=== PATIENT | male | born 1975 | race Two or more races ===

== ENCOUNTER 2022-02-16 18:06 | Inpatient (IN) | payer MEDICAID ==
[~2022-02-16] VITALS: Ht 172.7 cm; Wt 93.1 kg
[2022-02-16] MEDS ORDERED: QUET25TA PO ×2 (18:44)
[2022-02-16] MEDS ORDERED: QUET100T PO (18:44)
[2022-02-16 19:26] LABS: GLUCOMETER DEV NAME(LOC) POC.BV
[2022-02-16] MEDS ORDERED: LOPERAMIDE HCL 2 MG CAPSULE PO PRN (20:15)
[2022-02-16] MEDS ORDERED: OLANZapine 5 MG RAPDIS TABLET PO PRN (20:15)
[2022-02-16] MEDS ORDERED: ZOLPIDEM TARTRATE 10 MG TABLET PO PRN (20:15)
[2022-02-16] MEDS ORDERED: HydrOXYzine PAMOATE 50 MG CAPSULE PO PRN (20:15)
[2022-02-16] MEDS ORDERED: TUBERCULIN, PURIFIED PROTEIN DERIVATIVE 5 TU/0.1 ML SYRINGE ID ONE (20:15)
[2022-02-16] MEDS ORDERED: PROMETHAZINE HCL 25 MG TABLET PO PRN (20:15)
[2022-02-16] MEDS ORDERED: ACETAMINOPHEN 325 MG TABLET PO PRN (20:15)
[2022-02-16] MEDS ORDERED: GuaiFENesin/D-METHORPHAN [SUGAR-FREE] 200-20MG/10 ML SYRUP UDCUP PO PRN (20:15)
[2022-02-16] MEDS ORDERED: MAGNESIUM HYDROXIDE SUSPENSION 30 ML UDCUP PO PRN (20:15)
[2022-02-16] MEDS ORDERED: INFLUENZA VIRUS VACCINE QVS 2022-23 (6MO+)/PF 60 MCG/0.5 ML SYRINGE IM. ONE (20:30)
[2022-02-16] MEDS: MELATONIN 5 MG TABLET PO SCH (20:46)
[2022-02-16] MEDS: THIAMINE 100 MG TABLET PO SCH (20:46)
[2022-02-16] MEDS: LORazepam 2 MG TABLET PO PRN (20:47)
[2022-02-16] MEDS ORDERED: OLANZapine 5 MG RAPDIS TABLET PO SCH (21:00)
[2022-02-16 21:42] VITALS: BP 124/87
[2022-02-17 07:05] LABS: BASOPHILS % (AUTO) 1.7 % (0.0-2.0); EOSINOPHILS % (AUTO) 2.6 % (1.0-6.0); HEMATOCRIT 47.5 % (41-53); HEMOGLOBIN 15.9 g/dL (13.5-17.5); LYMPHOCYTES # (AUTO) 1.5 K/uL (1.0-4.8); LYMPHOCYTES % (AUTO) 23.2 % (22.0-44.0); MEAN CORPUSCULAR HEMOGLOBIN 30.8 pg (26.0-34.0); MEAN CORPUSCULAR HGB CONC 33.5 G/dL (31.0-37.0); MEAN CORPUSCULAR VOLUME 92 fL (80-100); MONOCYTES # (AUTO) 0.8 K/uL (0.1-1.0); NEUTROPHILS # (AUTO) 3.9 K/uL (1.8-7.7); NEUTROPHILS % (AUTO) 60.5 % (40.0-70.0); PLATELET COUNT (AUTO) 174 K/uL (150-450); RED BLOOD CELL COUNT(AUTO) 5.17 MIL/uL (4.50-5.90); RED CELL DISTRIBUTION WIDTH 14.1 % (11.5-14.5)
[2022-02-17 07:30] LABS: HEMOGLOBIN A1C 5.6 % (3.8-5.6)
[2022-02-17 07:34] LABS: ALANINE AMINOTRANSFERASE 48 U/L (12-78); ALBUMIN 3.4 g/dL (3.4-5.0); ALKALINE PHOSPHATASE 85 U/L (46-116); ANION GAP 8 mmol/L (8-16); ASPARTATE AMINOTRANSFERASE 26 U/L (15-37); BILIRUBIN,TOTAL 0.4 mg/dL (0.1-1.0); CALCIUM, TOTAL 8.8 mg/dL (8.8-10.5); CARBON DIOXIDE 27 mmol/L (22-29); CHLORIDE 103 mmol/L (98-107); CHOL/HDL RATIO 4.4 (4.2-7.3); CHOLESTEROL 218 mg/dL (131-200); CREATININE 1.02 mg/dL (0.60-1.30); FREE T4 (FREE THYROXINE) 0.96 ng/dL (0.76-1.46); GLUCOSE,RANDOM 98 mg/dL (70-110); HDL CHOLESTEROL 49 mg/dL (40-60); LDL CHOL (CALC.) 121 mg/dL (0-130); SODIUM SERUM 138 mmol/L (136-145); THYROID STIMULATING HORMONE 3.16 uIU/mL (0.36-3.74); TOTAL PROTEIN, SERUM 6.9 g/dL (6.4-8.2); TRIGLYCERIDES 242 mg/dL (15-150); UREA NITROGEN, BLOOD 9 mg/dL (7-18)
[2022-02-17 07:35] LABS: GLOMERULAR FILTR. RATE CALC > 60 mL/min (>60)
[2022-02-17 08:53] VITALS: BP 117/62
[2022-02-17] MEDS: OMEGA-3/DHA/EPA/FISH OIL 1,000 MG CAPSULE PO SCH (09:09)
[2022-02-17] MEDS: NALTREXONE HCL 50 MG TABLET PO SCH (09:09)
[2022-02-17] MEDS: FLUoxetine HCL 20 MG CAPSULE PO SCH (09:10)
[2022-02-17] MEDS: MULTIVITAMINS WITH MINERALS, THERAPEUTIC TABLET PO SCH (09:10)
[2022-02-17] MEDS: FOLIC ACID 1 MG TABLET PO SCH (09:10)
[2022-02-17] MEDS: THIAMINE 100 MG TABLET PO SCH ×2 (09:10→16:21)
[2022-02-17] MEDS: QUEtiapine FUMARATE 25 MG TABLET PO SCH (16:21)
[2022-02-17] MEDS: MELATONIN 5 MG TABLET PO SCH (20:11)
[2022-02-17] MEDS: QUEtiapine FUMARATE 100 MG TABLET PO SCH (20:12)
[2022-02-17 20:51] VITALS: BP 113/71
[2022-02-18 08:14] VITALS: BP 113/70
[2022-02-18] MEDS: MULTIVITAMINS WITH MINERALS, THERAPEUTIC TABLET PO SCH (09:47)
[2022-02-18] MEDS: NALTREXONE HCL 50 MG TABLET PO SCH (09:47)
[2022-02-18] MEDS: OMEGA-3/DHA/EPA/FISH OIL 1,000 MG CAPSULE PO SCH (09:47)
[2022-02-18] MEDS: FLUoxetine HCL 20 MG CAPSULE PO SCH (09:47)
[2022-02-18] MEDS: THIAMINE 100 MG TABLET PO SCH ×2 (09:47→16:43)
[2022-02-18] MEDS: QUEtiapine FUMARATE 25 MG TABLET PO SCH ×2 (09:47→16:43)
[2022-02-18] MEDS: FOLIC ACID 1 MG TABLET PO SCH (09:47)
[2022-02-18] MEDS: MELATONIN 5 MG TABLET PO SCH (20:02)
[2022-02-18] MEDS: QUEtiapine FUMARATE 100 MG TABLET PO SCH (20:02)
[2022-02-18 20:22] VITALS: BP 133/83
[2022-02-19 08:24] VITALS: BP 118/61
[2022-02-19] MEDS: THIAMINE 100 MG TABLET PO SCH ×2 (09:03→16:19)
[2022-02-19] MEDS: NALTREXONE HCL 50 MG TABLET PO SCH (09:03)
[2022-02-19] MEDS: FOLIC ACID 1 MG TABLET PO SCH (09:03)
[2022-02-19] MEDS: FLUoxetine HCL 20 MG CAPSULE PO SCH (09:03)
[2022-02-19] MEDS: OMEGA-3/DHA/EPA/FISH OIL 1,000 MG CAPSULE PO SCH (09:03)
[2022-02-19] MEDS: MULTIVITAMINS WITH MINERALS, THERAPEUTIC TABLET PO SCH (09:03)
[2022-02-19] MEDS: QUEtiapine FUMARATE 25 MG TABLET PO SCH ×2 (09:03→16:20)
[2022-02-19] MEDS: QUEtiapine FUMARATE 100 MG TABLET PO SCH (20:44)
[2022-02-19] MEDS: MELATONIN 5 MG TABLET PO SCH (20:45)
[2022-02-19 21:32] VITALS: BP 118/59
[2022-02-20 08:25] VITALS: BP 118/86
[2022-02-20] MEDS: THIAMINE 100 MG TABLET PO SCH ×2 (08:40→16:29)
[2022-02-20] MEDS: QUEtiapine FUMARATE 25 MG TABLET PO SCH ×2 (08:40→16:29)
[2022-02-20] MEDS: FLUoxetine HCL 20 MG CAPSULE PO SCH (08:40)
[2022-02-20] MEDS: NALTREXONE HCL 50 MG TABLET PO SCH (08:40)
[2022-02-20] MEDS: FOLIC ACID 1 MG TABLET PO SCH (08:40)
[2022-02-20] MEDS: MULTIVITAMINS WITH MINERALS, THERAPEUTIC TABLET PO SCH (08:40)
[2022-02-20] MEDS: OMEGA-3/DHA/EPA/FISH OIL 1,000 MG CAPSULE PO SCH (08:40)
[2022-02-20] MEDS: MELATONIN 5 MG TABLET PO SCH (20:14)
[2022-02-20] MEDS: QUEtiapine FUMARATE 100 MG TABLET PO SCH (20:14)
[2022-02-20 22:00] VITALS: BP 115/61
[2022-02-21 08:20] VITALS: BP 115/63
[2022-02-21] MEDS: OMEGA-3/DHA/EPA/FISH OIL 1,000 MG CAPSULE PO SCH (08:20)
[2022-02-21] MEDS: NALTREXONE HCL 50 MG TABLET PO SCH (08:20)
[2022-02-21] MEDS: MULTIVITAMINS WITH MINERALS, THERAPEUTIC TABLET PO SCH (08:20)
[2022-02-21] MEDS: FOLIC ACID 1 MG TABLET PO SCH (08:20)
[2022-02-21] MEDS: THIAMINE 100 MG TABLET PO SCH ×2 (08:20→16:19)
[2022-02-21] MEDS: QUEtiapine FUMARATE 25 MG TABLET PO SCH ×2 (08:20→16:19)
[2022-02-21] MEDS: FLUoxetine HCL 20 MG CAPSULE PO SCH (08:20)
[2022-02-21] MEDS: QUEtiapine FUMARATE 100 MG TABLET PO SCH (20:14)
[2022-02-21 20:23] VITALS: BP 126/84
[2022-02-21] MEDS: MELATONIN 5 MG TABLET PO SCH (20:23)
[2022-02-22 08:24] VITALS: BP 107/70
[2022-02-22] MEDS: FOLIC ACID 1 MG TABLET PO SCH (08:35)
[2022-02-22] MEDS: QUEtiapine FUMARATE 25 MG TABLET PO SCH ×2 (08:35→16:44)
[2022-02-22] MEDS: OMEGA-3/DHA/EPA/FISH OIL 1,000 MG CAPSULE PO SCH (08:35)
[2022-02-22] MEDS: FLUoxetine HCL 20 MG CAPSULE PO SCH (08:35)
[2022-02-22] MEDS: NALTREXONE HCL 50 MG TABLET PO SCH (08:35)
[2022-02-22] MEDS: THIAMINE 100 MG TABLET PO SCH ×2 (08:35→16:43)
[2022-02-22] MEDS: MULTIVITAMINS WITH MINERALS, THERAPEUTIC TABLET PO SCH (08:36)
[2022-02-22 08:56] LABS: GLUCOMETER DEV NAME(LOC) POC.BV
[2022-02-22] MEDS: QUEtiapine FUMARATE 100 MG TABLET PO SCH (20:10)
[2022-02-22] MEDS: MELATONIN 5 MG TABLET PO SCH (20:11)
[2022-02-22 20:24] VITALS: BP 111/78
[2022-02-23] MEDS: NALTREXONE HCL 50 MG TABLET PO SCH (08:52)
[2022-02-23] MEDS: THIAMINE 100 MG TABLET PO SCH ×2 (08:52→16:10)
[2022-02-23] MEDS: MULTIVITAMINS WITH MINERALS, THERAPEUTIC TABLET PO SCH (08:52)
[2022-02-23] MEDS: FOLIC ACID 1 MG TABLET PO SCH (08:52)
[2022-02-23] MEDS: QUEtiapine FUMARATE 25 MG TABLET PO SCH ×2 (08:52→16:10)
[2022-02-23] MEDS: OMEGA-3/DHA/EPA/FISH OIL 1,000 MG CAPSULE PO SCH (08:52)
[2022-02-23] MEDS: FLUoxetine HCL 20 MG CAPSULE PO SCH (08:52)
[2022-02-23 08:55] VITALS: BP 131/100
[2022-02-23] MEDS: QUEtiapine FUMARATE 200 MG TABLET PO SCH (20:46)
[2022-02-23] MEDS: MELATONIN 5 MG TABLET PO SCH (20:47)
[2022-02-24 08:35] VITALS: BP 127/88
[2022-02-24] MEDS: NALTREXONE HCL 50 MG TABLET PO SCH (08:52)
[2022-02-24] MEDS: QUEtiapine FUMARATE 25 MG TABLET PO SCH ×2 (08:52→16:36)
[2022-02-24] MEDS: FOLIC ACID 1 MG TABLET PO SCH (08:52)
[2022-02-24] MEDS: FLUoxetine HCL 20 MG CAPSULE PO SCH (08:53)
[2022-02-24] MEDS: OMEGA-3/DHA/EPA/FISH OIL 1,000 MG CAPSULE PO SCH (08:53)
[2022-02-24] MEDS: THIAMINE 100 MG TABLET PO SCH ×2 (08:53→16:36)
[2022-02-24] MEDS: MULTIVITAMINS WITH MINERALS, THERAPEUTIC TABLET PO SCH (08:53)
[2022-02-24] MEDS: QUEtiapine FUMARATE 200 MG TABLET PO SCH (20:42)
[2022-02-24] MEDS: MELATONIN 5 MG TABLET PO SCH (20:43)
[2022-02-24 20:46] VITALS: BP 129/75
[2022-02-25 08:41] VITALS: BP 123/76
[2022-02-25] MEDS: FLUoxetine HCL 20 MG CAPSULE PO SCH (08:50)
[2022-02-25] MEDS: QUEtiapine FUMARATE 25 MG TABLET PO SCH ×2 (08:50→16:26)
[2022-02-25] MEDS: FOLIC ACID 1 MG TABLET PO SCH (08:50)
[2022-02-25] MEDS: OMEGA-3/DHA/EPA/FISH OIL 1,000 MG CAPSULE PO SCH (08:51)
[2022-02-25] MEDS: MULTIVITAMINS WITH MINERALS, THERAPEUTIC TABLET PO SCH (08:51)
[2022-02-25] MEDS: THIAMINE 100 MG TABLET PO SCH ×2 (08:51→16:26)
[2022-02-25] MEDS: NALTREXONE HCL 50 MG TABLET PO SCH (08:51)
[2022-02-25 20:33] VITALS: BP 124/82
[2022-02-25] MEDS: QUEtiapine FUMARATE 200 MG TABLET PO SCH (20:42)
[2022-02-25] MEDS: MELATONIN 5 MG TABLET PO SCH (20:43)
[2022-02-25] MEDS: MAG HYDROX/AL HYDROX/SIMETH ES 30 ML SUSPENSION UDCUP PO PRN (21:30)
[2022-02-26 08:20] VITALS: BP 137/94
[2022-02-26] MEDS: NALTREXONE HCL 50 MG TABLET PO SCH (08:59)
[2022-02-26] MEDS: OMEGA-3/DHA/EPA/FISH OIL 1,000 MG CAPSULE PO SCH (08:59)
[2022-02-26] MEDS: THIAMINE 100 MG TABLET PO SCH (08:59)
[2022-02-26] MEDS: FLUoxetine HCL 20 MG CAPSULE PO SCH (09:00)
[2022-02-26] MEDS: QUEtiapine FUMARATE 25 MG TABLET PO SCH ×2 (09:00→16:32)
[2022-02-26] MEDS: FOLIC ACID 1 MG TABLET PO SCH (09:00)
[2022-02-26] MEDS: MULTIVITAMINS WITH MINERALS, THERAPEUTIC TABLET PO SCH (09:00)
[2022-02-26] MEDS: GABAPENTIN 300 MG CAPSULE PO SCH ×2 (16:34→20:49)
[2022-02-26] MEDS ORDERED: DICLOFENAC SODIUM 50 MG DR TABLET PO SCH (17:00)
[2022-02-26 20:43] VITALS: BP 111/84
[2022-02-26] MEDS: QUEtiapine FUMARATE 200 MG TABLET PO SCH (20:47)
[2022-02-26] MEDS: MELATONIN 5 MG TABLET PO SCH (20:49)
[2022-02-27] MEDS: DICLOFENAC SODIUM 50 MG DR TABLET PO SCH ×3 (07:07→16:55)
[2022-02-27 08:55] VITALS: BP 130/78
[2022-02-27] MEDS ORDERED: DULoxetine HCL 20 MG CAPSULE PO SCH (09:00)
[2022-02-27] MEDS: NALTREXONE HCL 50 MG TABLET PO SCH (09:12)
[2022-02-27] MEDS: OMEGA-3/DHA/EPA/FISH OIL 1,000 MG CAPSULE PO SCH (09:12)
[2022-02-27] MEDS: GABAPENTIN 300 MG CAPSULE PO SCH ×4 (09:12→20:13)
[2022-02-27] MEDS: MULTIVITAMINS WITH MINERALS, THERAPEUTIC TABLET PO SCH (09:12)
[2022-02-27] MEDS: QUEtiapine FUMARATE 25 MG TABLET PO SCH ×2 (09:20→16:54)
[2022-02-27 20:08] VITALS: BP 118/72
[2022-02-27] MEDS: MAG HYDROX/AL HYDROX/SIMETH ES 30 ML SUSPENSION UDCUP PO PRN (20:13)
[2022-02-27] MEDS: MELATONIN 5 MG TABLET PO SCH (20:13)
[2022-02-27] MEDS: QUEtiapine FUMARATE 200 MG TABLET PO SCH (20:13)
[2022-02-28] MEDS: DICLOFENAC SODIUM 50 MG DR TABLET PO SCH ×3 (06:43→16:30)
[2022-02-28] MEDS: OMEGA-3/DHA/EPA/FISH OIL 1,000 MG CAPSULE PO SCH (08:13)
[2022-02-28] MEDS: DULoxetine HCL 30 MG CAPSULE PO SCH (08:13)
[2022-02-28] MEDS: QUEtiapine FUMARATE 25 MG TABLET PO SCH ×2 (08:13→16:30)
[2022-02-28] MEDS: MULTIVITAMINS WITH MINERALS, THERAPEUTIC TABLET PO SCH (08:13)
[2022-02-28] MEDS: NALTREXONE HCL 50 MG TABLET PO SCH (08:13)
[2022-02-28] MEDS: GABAPENTIN 300 MG CAPSULE PO SCH ×4 (08:13→20:00)
[2022-02-28 08:40] VITALS: BP 118/82
[2022-02-28 10:06] LABS: GLUCOMETER DEV NAME(LOC) POC.BV
[2022-02-28] MEDS: MELATONIN 5 MG TABLET PO SCH (20:00)
[2022-02-28] MEDS: QUEtiapine FUMARATE 200 MG TABLET PO SCH (20:00)
[2022-02-28 20:27] VITALS: BP 108/76
[2022-03-01] MEDS: DICLOFENAC SODIUM 50 MG DR TABLET PO SCH ×3 (06:50→17:01)
[2022-03-01 08:09] VITALS: BP 127/81
[2022-03-01] MEDS: GABAPENTIN 300 MG CAPSULE PO SCH ×4 (08:58→21:16)
[2022-03-01] MEDS: NALTREXONE HCL 50 MG TABLET PO SCH (08:58)
[2022-03-01] MEDS: OMEGA-3/DHA/EPA/FISH OIL 1,000 MG CAPSULE PO SCH (08:58)
[2022-03-01] MEDS: DULoxetine HCL 30 MG CAPSULE PO SCH (08:58)
[2022-03-01] MEDS: MULTIVITAMINS WITH MINERALS, THERAPEUTIC TABLET PO SCH (08:58)
[2022-03-01] MEDS: QUEtiapine FUMARATE 25 MG TABLET PO SCH ×2 (08:58→17:02)
[2022-03-01] MEDS: LORazepam 2 MG TABLET PO PRN (09:58)
[2022-03-01 20:30] VITALS: BP 117/73
[2022-03-01] MEDS: MELATONIN 5 MG TABLET PO SCH (21:16)
[2022-03-01] MEDS: QUEtiapine FUMARATE 200 MG TABLET PO SCH (21:16)
[2022-03-02] MEDS: DICLOFENAC SODIUM 50 MG DR TABLET PO SCH ×3 (06:55→16:38)
[2022-03-02 08:15] VITALS: BP 113/72
[2022-03-02] MEDS: LORazepam 2 MG TABLET PO PRN (08:16)
[2022-03-02] MEDS: NALTREXONE HCL 50 MG TABLET PO SCH (08:52)
[2022-03-02] MEDS: OMEGA-3/DHA/EPA/FISH OIL 1,000 MG CAPSULE PO SCH (08:53)
[2022-03-02] MEDS: MULTIVITAMINS WITH MINERALS, THERAPEUTIC TABLET PO SCH (08:53)
[2022-03-02] MEDS: QUEtiapine FUMARATE 25 MG TABLET PO SCH ×2 (08:53→16:38)
[2022-03-02] MEDS: DULoxetine HCL 30 MG CAPSULE PO SCH (08:53)
[2022-03-02] MEDS: GABAPENTIN 300 MG CAPSULE PO SCH ×4 (08:53→20:53)
[2022-03-02 16:39] VITALS: BP 123/73
[2022-03-02 20:06] VITALS: BP 120/73
[2022-03-02] MEDS: MELATONIN 5 MG TABLET PO SCH (20:53)
[2022-03-02] MEDS: QUEtiapine FUMARATE 200 MG TABLET PO SCH (20:53)
[2022-03-03] MEDS: DICLOFENAC SODIUM 50 MG DR TABLET PO SCH ×3 (06:38→16:38)
[2022-03-03 08:18] VITALS: BP 118/73
[2022-03-03] MEDS: OMEGA-3/DHA/EPA/FISH OIL 1,000 MG CAPSULE PO SCH (08:53)
[2022-03-03] MEDS: MULTIVITAMINS WITH MINERALS, THERAPEUTIC TABLET PO SCH (08:53)
[2022-03-03] MEDS: DULoxetine HCL 30 MG CAPSULE PO SCH (08:53)
[2022-03-03] MEDS: QUEtiapine FUMARATE 25 MG TABLET PO SCH ×2 (08:53→16:39)
[2022-03-03] MEDS: NALTREXONE HCL 50 MG TABLET PO SCH (08:53)
[2022-03-03] MEDS: GABAPENTIN 300 MG CAPSULE PO SCH ×4 (08:53→20:41)
[2022-03-03] MEDS: MAG HYDROX/AL HYDROX/SIMETH ES 30 ML SUSPENSION UDCUP PO PRN (20:23)
[2022-03-03 20:40] VITALS: BP 118/84
[2022-03-03] MEDS: QUEtiapine FUMARATE 200 MG TABLET PO SCH (20:41)
[2022-03-03] MEDS: MELATONIN 5 MG TABLET PO SCH (20:41)
[2022-03-04] MEDS: DICLOFENAC SODIUM 50 MG DR TABLET PO SCH ×3 (06:57→16:33)
[2022-03-04] MEDS: NALTREXONE HCL 50 MG TABLET PO SCH (07:54)
[2022-03-04] MEDS: QUEtiapine FUMARATE 25 MG TABLET PO SCH ×2 (07:54→16:32)
[2022-03-04] MEDS: GABAPENTIN 300 MG CAPSULE PO SCH ×4 (07:54→20:33)
[2022-03-04] MEDS: DULoxetine HCL 30 MG CAPSULE PO SCH (07:54)
[2022-03-04] MEDS: OMEGA-3/DHA/EPA/FISH OIL 1,000 MG CAPSULE PO SCH (07:54)
[2022-03-04] MEDS: MULTIVITAMINS WITH MINERALS, THERAPEUTIC TABLET PO SCH (07:54)
[2022-03-04 08:37] VITALS: BP 105/78
[2022-03-04] MEDS ORDERED: ATOMOXETINE HCL 10 MG CAPSULE PO SCH (09:00)
[2022-03-04 14:46] LABS: GLUCOMETER DEV NAME(LOC) POC.BV
[2022-03-04 20:13] VITALS: BP 105/73
[2022-03-04] MEDS: QUEtiapine FUMARATE 200 MG TABLET PO SCH (20:33)
[2022-03-04] MEDS: MELATONIN 5 MG TABLET PO SCH (20:34)
[2022-03-05] MEDS: DICLOFENAC SODIUM 50 MG DR TABLET PO SCH ×3 (06:45→16:29)
[2022-03-05] MEDS ORDERED: ATOMOXETINE HCL 18 MG CAPSULE PO SCH (09:00)
[2022-03-05 09:02] VITALS: BP 121/83
[2022-03-05] MEDS: QUEtiapine FUMARATE 25 MG TABLET PO SCH ×2 (09:22→16:29)
[2022-03-05] MEDS: MULTIVITAMINS WITH MINERALS, THERAPEUTIC TABLET PO SCH (09:22)
[2022-03-05] MEDS: NALTREXONE HCL 50 MG TABLET PO SCH (09:23)
[2022-03-05] MEDS: GABAPENTIN 300 MG CAPSULE PO SCH ×4 (09:23→20:48)
[2022-03-05] MEDS: DULoxetine HCL 30 MG CAPSULE PO SCH (09:23)
[2022-03-05] MEDS: OMEGA-3/DHA/EPA/FISH OIL 1,000 MG CAPSULE PO SCH (09:23)
[2022-03-05 14:41] LABS: GLUCOMETER DEV NAME(LOC) POC.BV
[2022-03-05 20:23] VITALS: BP 120/87
[2022-03-05] MEDS: QUEtiapine FUMARATE 200 MG TABLET PO SCH (20:48)
[2022-03-05] MEDS: MELATONIN 5 MG TABLET PO SCH (20:48)
[2022-03-06] MEDS: DICLOFENAC SODIUM 50 MG DR TABLET PO SCH ×3 (06:42→17:09)
[2022-03-06] MEDS: QUEtiapine FUMARATE 100 MG TABLET PO PRN ×3 (07:20→17:17)
[2022-03-06] MEDS: GABAPENTIN 300 MG CAPSULE PO SCH ×4 (08:28→20:28)
[2022-03-06] MEDS: DULoxetine HCL 30 MG CAPSULE PO SCH (08:28)
[2022-03-06] MEDS: NALTREXONE HCL 50 MG TABLET PO SCH (08:29)
[2022-03-06] MEDS: OMEGA-3/DHA/EPA/FISH OIL 1,000 MG CAPSULE PO SCH (08:29)
[2022-03-06] MEDS: MULTIVITAMINS WITH MINERALS, THERAPEUTIC TABLET PO SCH (08:29)
[2022-03-06] MEDS: QUEtiapine FUMARATE 25 MG TABLET PO SCH ×2 (08:29→17:09)
[2022-03-06 08:41] VITALS: BP 112/82
[2022-03-06] MEDS ORDERED: ATOMOXETINE HCL 25 MG CAPSULE PO SCH (09:00)
[2022-03-06 20:00] VITALS: BP 106/67
[2022-03-06] MEDS: QUEtiapine FUMARATE 300 MG TABLET PO SCH (20:28)
[2022-03-06] MEDS: MELATONIN 5 MG TABLET PO SCH (20:28)
[2022-03-07] MEDS: DICLOFENAC SODIUM 50 MG DR TABLET PO SCH ×3 (07:02→17:05)
[2022-03-07 08:08] VITALS: BP 114/77
[2022-03-07] MEDS: ATOMOXETINE HCL 40 MG CAPSULE PO SCH (09:20)
[2022-03-07] MEDS: NALTREXONE HCL 50 MG TABLET PO SCH (09:20)
[2022-03-07] MEDS: DULoxetine HCL 30 MG CAPSULE PO SCH (09:20)
[2022-03-07] MEDS: QUEtiapine FUMARATE 25 MG TABLET PO SCH ×2 (09:21→17:04)
[2022-03-07] MEDS: MULTIVITAMINS WITH MINERALS, THERAPEUTIC TABLET PO SCH (09:21)
[2022-03-07] MEDS: OMEGA-3/DHA/EPA/FISH OIL 1,000 MG CAPSULE PO SCH (09:21)
[2022-03-07] MEDS: GABAPENTIN 300 MG CAPSULE PO SCH ×4 (09:21→20:15)
[2022-03-07] MEDS: MAG HYDROX/AL HYDROX/SIMETH ES 30 ML SUSPENSION UDCUP PO PRN (13:14)
[2022-03-07] MEDS: QUEtiapine FUMARATE 300 MG TABLET PO SCH (20:14)
[2022-03-07] MEDS: MELATONIN 5 MG TABLET PO SCH (20:19)
[2022-03-07 20:28] VITALS: BP 115/71
[2022-03-08] MEDS: DICLOFENAC SODIUM 50 MG DR TABLET PO SCH ×3 (06:45→17:04)
[2022-03-08] MEDS: NALTREXONE HCL 50 MG TABLET PO SCH (08:27)
[2022-03-08] MEDS: MULTIVITAMINS WITH MINERALS, THERAPEUTIC TABLET PO SCH (08:27)
[2022-03-08] MEDS: QUEtiapine FUMARATE 25 MG TABLET PO SCH ×2 (08:27→16:34)
[2022-03-08] MEDS: OMEGA-3/DHA/EPA/FISH OIL 1,000 MG CAPSULE PO SCH (08:27)
[2022-03-08] MEDS: DULoxetine HCL 30 MG CAPSULE PO SCH (08:27)
[2022-03-08] MEDS: GABAPENTIN 300 MG CAPSULE PO SCH ×4 (08:27→20:31)
[2022-03-08] MEDS: ATOMOXETINE HCL 40 MG CAPSULE PO SCH (08:27)
[2022-03-08 08:30] VITALS: BP 133/93
[2022-03-08 20:00] VITALS: BP 143/84
[2022-03-08] MEDS: QUEtiapine FUMARATE 300 MG TABLET PO SCH (20:31)
[2022-03-08] MEDS: MELATONIN 5 MG TABLET PO SCH (20:33)
[2022-03-08] MEDS: MAG HYDROX/AL HYDROX/SIMETH ES 30 ML SUSPENSION UDCUP PO PRN (21:58)
[2022-03-09] MEDS: DICLOFENAC SODIUM 50 MG DR TABLET PO SCH ×3 (06:42→16:43)
[2022-03-09 08:03] VITALS: BP 123/79
[2022-03-09] MEDS: DULoxetine HCL 30 MG CAPSULE PO SCH (09:19)
[2022-03-09] MEDS: MULTIVITAMINS WITH MINERALS, THERAPEUTIC TABLET PO SCH (09:19)
[2022-03-09] MEDS: ATOMOXETINE HCL 40 MG CAPSULE PO SCH (09:20)
[2022-03-09] MEDS: GABAPENTIN 300 MG CAPSULE PO SCH ×4 (09:20→20:30)
[2022-03-09] MEDS: OMEGA-3/DHA/EPA/FISH OIL 1,000 MG CAPSULE PO SCH (09:20)
[2022-03-09] MEDS: NALTREXONE HCL 50 MG TABLET PO SCH (09:20)
[2022-03-09] MEDS: QUEtiapine FUMARATE 25 MG TABLET PO SCH ×2 (10:54→16:43)
[2022-03-09 20:22] VITALS: BP 114/84
[2022-03-09] MEDS: MELATONIN 5 MG TABLET PO SCH (20:44)
[2022-03-09] MEDS: QUEtiapine FUMARATE 300 MG TABLET PO SCH (20:51)
[2022-03-09] MEDS: QUEtiapine FUMARATE 200 MG TABLET PO SCH (21:00)
[2022-03-09] MEDS: GABAPENTIN 400 MG CAPSULE PO SCH (21:00)
[2022-03-10] MEDS: DICLOFENAC SODIUM 50 MG DR TABLET PO SCH ×3 (06:43→16:52)
[2022-03-10 08:50] VITALS: BP 132/92
[2022-03-10] MEDS ORDERED: NALTREXONE MICROSPHERES 380 MG IM ONE (09:00)
[2022-03-10] MEDS: DULoxetine HCL 20 MG CAPSULE PO SCH (09:04)
[2022-03-10] MEDS: GABAPENTIN 400 MG CAPSULE PO SCH ×4 (09:05→20:45)
[2022-03-10] MEDS: QUEtiapine FUMARATE 25 MG TABLET PO SCH ×3 (09:05→16:53)
[2022-03-10] MEDS: ATOMOXETINE HCL 40 MG CAPSULE PO SCH (09:05)
[2022-03-10] MEDS: OMEGA-3/DHA/EPA/FISH OIL 1,000 MG CAPSULE PO SCH (09:05)
[2022-03-10] MEDS: MULTIVITAMINS WITH MINERALS, THERAPEUTIC TABLET PO SCH (09:05)
[2022-03-10 20:22] VITALS: BP 120/82
[2022-03-10] MEDS: QUEtiapine FUMARATE 200 MG TABLET PO SCH (20:45)
[2022-03-10] MEDS: MELATONIN 5 MG TABLET PO SCH (20:45)
[2022-03-11] MEDS: DICLOFENAC SODIUM 50 MG DR TABLET PO SCH ×3 (07:01→16:40)
[2022-03-11 08:13] VITALS: BP 135/92
[2022-03-11] MEDS: GABAPENTIN 300 MG CAPSULE PO PRN (09:05)
[2022-03-11] MEDS: GABAPENTIN 400 MG CAPSULE PO SCH ×4 (09:05→20:46)
[2022-03-11] MEDS: QUEtiapine FUMARATE 25 MG TABLET PO SCH ×3 (09:05→16:40)
[2022-03-11] MEDS: MULTIVITAMINS WITH MINERALS, THERAPEUTIC TABLET PO SCH (09:05)
[2022-03-11] MEDS: DULoxetine HCL 20 MG CAPSULE PO SCH (09:05)
[2022-03-11] MEDS: OMEGA-3/DHA/EPA/FISH OIL 1,000 MG CAPSULE PO SCH (09:05)
[2022-03-11] MEDS: ATOMOXETINE HCL 40 MG CAPSULE PO SCH (09:06)
[2022-03-11] MEDS: MAG HYDROX/AL HYDROX/SIMETH ES 30 ML SUSPENSION UDCUP PO PRN (20:12)
[2022-03-11 20:39] VITALS: BP 128/76
[2022-03-11] MEDS: QUEtiapine FUMARATE 200 MG TABLET PO SCH (20:46)
[2022-03-11] MEDS: MELATONIN 5 MG TABLET PO SCH (20:46)
[2022-03-12] MEDS: DICLOFENAC SODIUM 50 MG DR TABLET PO SCH ×3 (06:41→17:16)
[2022-03-12 08:34] VITALS: BP 128/76
[2022-03-12] MEDS: MULTIVITAMINS WITH MINERALS, THERAPEUTIC TABLET PO SCH (08:47)
[2022-03-12] MEDS: QUEtiapine FUMARATE 25 MG TABLET PO SCH ×3 (08:47→17:15)
[2022-03-12] MEDS: DULoxetine HCL 20 MG CAPSULE PO SCH (08:47)
[2022-03-12] MEDS: OMEGA-3/DHA/EPA/FISH OIL 1,000 MG CAPSULE PO SCH (08:47)
[2022-03-12] MEDS: GABAPENTIN 400 MG CAPSULE PO SCH ×4 (08:47→20:26)
[2022-03-12] MEDS: ATOMOXETINE HCL 60 MG CAPSULE PO SCH (08:48)
[2022-03-12] MEDS: GABAPENTIN 300 MG CAPSULE PO PRN (09:50)
[2022-03-12] MEDS: QUEtiapine FUMARATE 100 MG TABLET PO PRN (09:50)
[2022-03-12 10:02] LABS: GLUCOMETER DEV NAME(LOC) POC.BV
[2022-03-12] MEDS: MELATONIN 5 MG TABLET PO SCH (20:26)
[2022-03-12] MEDS: MAG HYDROX/AL HYDROX/SIMETH ES 30 ML SUSPENSION UDCUP PO PRN (20:26)
[2022-03-12] MEDS: QUEtiapine FUMARATE 200 MG TABLET PO SCH (20:26)
[2022-03-12 20:27] VITALS: BP 103/74
[2022-03-13] MEDS: DICLOFENAC SODIUM 50 MG DR TABLET PO SCH ×3 (06:36→16:27)
[2022-03-13 08:00] VITALS: BP 130/76
[2022-03-13] MEDS: OMEGA-3/DHA/EPA/FISH OIL 1,000 MG CAPSULE PO SCH (08:10)
[2022-03-13] MEDS: GABAPENTIN 400 MG CAPSULE PO SCH ×4 (08:10→20:22)
[2022-03-13] MEDS: QUEtiapine FUMARATE 25 MG TABLET PO SCH ×3 (08:10→16:27)
[2022-03-13] MEDS: DULoxetine HCL 60 MG CAPSULE PO SCH (08:10)
[2022-03-13] MEDS: MULTIVITAMINS WITH MINERALS, THERAPEUTIC TABLET PO SCH (08:10)
[2022-03-13] MEDS: ATOMOXETINE HCL 60 MG CAPSULE PO SCH (08:11)
[2022-03-13] MEDS ORDERED: ATOMOXETINE HCL 10 MG CAPSULE PO SCH (09:00)
[2022-03-13] MEDS: MELATONIN 5 MG TABLET PO SCH (20:22)
[2022-03-13] MEDS: QUEtiapine FUMARATE 200 MG TABLET PO SCH (20:22)
[2022-03-13] MEDS: MAG HYDROX/AL HYDROX/SIMETH ES 30 ML SUSPENSION UDCUP PO PRN (21:44)
[2022-03-14] MEDS: DICLOFENAC SODIUM 50 MG DR TABLET PO SCH ×2 (06:36→11:36)
[2022-03-14] MEDS: OMEGA-3/DHA/EPA/FISH OIL 1,000 MG CAPSULE PO SCH (08:51)
[2022-03-14] MEDS: MULTIVITAMINS WITH MINERALS, THERAPEUTIC TABLET PO SCH (08:51)
[2022-03-14] MEDS: GABAPENTIN 400 MG CAPSULE PO SCH ×2 (08:51→13:11)
[2022-03-14] MEDS: QUEtiapine FUMARATE 25 MG TABLET PO SCH ×2 (08:51→13:11)
[2022-03-14] MEDS: DULoxetine HCL 60 MG CAPSULE PO SCH (08:51)
[2022-03-14] MEDS: ATOMOXETINE HCL 60 MG CAPSULE PO SCH (08:52)
[2022-03-14] MEDS ORDERED: ATOM60CA7 PO (09:44)
[2022-03-14] MEDS ORDERED: GABA-1201 PO (09:44)
[2022-03-14] MEDS ORDERED: MULT-1239 PO (09:44)
[2022-03-14] MEDS ORDERED: QUET25TA36 PO (09:44)
[2022-03-14] MEDS ORDERED: DULO-113 PO (09:44)
[2022-03-14] MEDS ORDERED: DICL-208 PO (09:44)
[2022-03-14] MEDS ORDERED: NALT380S2 IM (09:44)
[2022-03-14] MEDS ORDERED: QUET200T30 PO (09:44)
[2022-03-14] MEDS ORDERED: OMEG-135 PO (09:44)
[2022-03-14] MEDS ORDERED: MELA5TAB40 PO (09:44)
[2022-04-07] MEDS ORDERED: NALTREXONE MICROSPHERES 380 MG IM SCH (09:00)
== END 2022-03-14 13:43 | disposition home or self-care (01) | DRG 750 ==
LOC: B2S 19:08
PROVIDERS: ADMIT Psychiatry & Neurology Psychiatry; ATTEND Psychiatry & Neurology Psychiatry
DX: F25.1 Schizoaffective disorder, depressive type (principal); E78.5 Hyperlipidemia, unspecified; Z20.822 Contact with and (suspected) exposure to COVID-19; F10.10 Alcohol abuse, uncomplicated; F41.0 Panic disorder [episodic paroxysmal anxiety]; F60.0 Paranoid personality disorder; F90.9 Attention-deficit hyperactivity disorder, unspecified type; J44.9 Chronic obstructive pulmonary disease, unspecified; Z88.8 Allergy status to other drugs, medicaments and biological substances; Z87.891 Personal history of nicotine dependence; Z59.00 Homelessness unspecified
CPT/HCPCS: 80053; 80061; 83036; 84439; 84443; 84550; 85025; 86592; 87081; Q9967

== ENCOUNTER 2022-10-30 16:37 | Inpatient (IN) | payer MEDICAID ==
[~2022-10-30] VITALS: Ht 172.7 cm; Wt 86.6 kg
[~2022-10-30 16:37] MED LIST: ATOM60CA7 PO; DICL-208 PO; DULO-113 PO; GABA-1201 PO; MELA5TAB40 PO; MULT-1239 PO; NALT380S2 IM; OMEG-135 PO; QUET200T30 PO; QUET25TA36 PO
[2022-10-30] MEDS ORDERED: DICL-206 PO (16:45)
[2022-10-30] MEDS ORDERED: DULO-114 PO (16:45)
[2022-10-30] MEDS ORDERED: BUPR1FIL7 SL (16:45)
[2022-10-30] MEDS ORDERED: GABA-1181 PO (16:45)
[2022-10-30] MEDS ORDERED: MIRT-92 PO (16:45)
[2022-10-30] MEDS ORDERED: TRAZ-257 PO (16:45)
[2022-10-30 18:11] LABS: BASOPHILS % (AUTO) 0.8 % (0.0-2.0); EOSINOPHILS % (AUTO) 1.1 % (1.0-6.0); HEMATOCRIT 43.9 % (41-53); HEMOGLOBIN 14.6 g/dL (13.5-17.5); LYMPHOCYTES # (AUTO) 1.7 K/uL (1.0-4.8); LYMPHOCYTES % (AUTO) 23.5 % (22.0-44.0); MEAN CORPUSCULAR HGB CONC 33.2 G/dL (31.0-37.0); MEAN CORPUSCULAR VOLUME 84 fL (80-100); MONOCYTES # (AUTO) 0.5 K/uL (0.1-1.0); MONOCYTES % (AUTO) 7.2 % (2.0-9.0); NEUTROPHILS # (AUTO) 4.9 K/uL (1.8-7.7); NEUTROPHILS % (AUTO) 67.4 % (40.0-70.0); PLATELET COUNT (AUTO) 219 K/uL (150-450)
[2022-10-30] MEDS ORDERED: DiphenhydrAMINE HCL 25 MG CAPSULE PO ONE (18:15)
[2022-10-30] MEDS ORDERED: TraZODone HCL 50 MG TABLET PO ONE (18:15)
[2022-10-30] MEDS ORDERED: LORazepam 2 MG TABLET PO ONE (18:15)
[2022-10-30 18:22] LABS: ANION GAP 11 mmol/L (8-16); CALCIUM, TOTAL 9.3 mg/dL (8.8-10.5); CARBON DIOXIDE 27 mmol/L (22-29); CHLORIDE 102 mmol/L (98-107); CREATININE 0.87 mg/dL (0.60-1.30); GLOMERULAR FILTR. RATE CALC > 60 mL/min (>60); GLUCOSE,RANDOM 109 mg/dL (70-110); POTASSIUM 4.4 mmol/L (3.5-5.1); SODIUM SERUM 140 mmol/L (136-145)
[2022-10-30 18:28] LABS: ALANINE AMINOTRANSFERASE 30 U/L (12-78); ALKALINE PHOSPHATASE 120 U/L (46-116); ASPARTATE AMINOTRANSFERASE 19 U/L (15-37); BILIRUBIN,TOTAL 0.3 mg/dL (0.1-1.0); TOTAL PROTEIN, SERUM 8.1 g/dL (6.4-8.2)
[2022-10-30 18:37] LABS: AMPHET/METH SCREEN,URINE NEGATIVE (NEGATIVE); BARBITURATE SCREEN, URINE NEGATIVE (NEGATIVE); BENZODIAZEPINES SCREEN,URINE NEGATIVE (NEGATIVE); CANNABINOID SCREEN,URINE NEGATIVE (NEGATIVE); COCAINE SCREEN,URINE NEGATIVE (NEGATIVE); METHADONE SCREEN, URINE NEGATIVE (NEGATIVE); OPIATE SCREEN,URINE NEGATIVE (NEGATIVE); PHENCYCLIDINE SCREEN,URINE NEGATIVE (NEGATIVE)
[2022-10-30 18:50] LABS: COVID AG,FIA SOURCE NASOPHARYNGEAL
[2022-10-31] VITALS: BP 119/79; PULSE 79; RESP 18; TEMP 97.8; O2SAT 97
[2022-10-31] MEDS ORDERED: ACETAMINOPHEN 325 MG TABLET PO PRN (07:15)
[2022-10-31] MEDS ORDERED: ONDANSETRON HCL 4 MG TABLET PO PRN (07:15)
[2022-10-31] MEDS ORDERED: ALBUTEROL SULFATE HFA 90 MCG/PUFF 8 GM INHALER IH PRN (07:15)
[2022-10-31] MEDS ORDERED: GuaiFENesin/D-METHORPHAN [SUGAR-FREE] 200-20MG/10 ML SYRUP UDCUP PO PRN (07:15)
[2022-10-31] MEDS ORDERED: DOCUSATE SODIUM 100 MG CAPSULE PO PRN (07:15)
[2022-10-31] MEDS ORDERED: PETROLATUM,WHITE 28 GM JELLY TP PRN (07:15)
[2022-10-31] MEDS ORDERED: LOPERAMIDE HCL 2 MG CAPSULE PO PRN (07:15)
[2022-10-31] MEDS ORDERED: CloNIDine HCL 0.1 MG TABLET PO PRN (07:15)
[2022-10-31] MEDS ORDERED: IBUPROFEN 400 MG TABLET PO PRN (07:15)
[2022-10-31] MEDS ORDERED: MAGNESIUM HYDROXIDE SUSPENSION 30 ML UDCUP PO PRN (07:15)
[2022-10-31] MEDS ORDERED: MAG HYDROX/AL HYDROX/SIMETH ES 30 ML SUSPENSION UDCUP PO PRN (07:15)
[2022-10-31] MEDS ORDERED: NICOTINE 14 MG/24 HOUR PATCH TD PRN (07:15)
[2022-10-31 08:27] VITALS: BP 116/66; PULSE 82; RESP 21; TEMP 98.1; O2SAT 99
[2022-10-31] MEDS: GABAPENTIN 300 MG CAPSULE PO SCH ×3 (09:38→16:10)
[2022-10-31] MEDS: DULoxetine HCL 20 MG CAPSULE PO SCH (11:02)
[2022-10-31] MEDS: LORazepam 2 MG TABLET PO PRN ×2 (16:09→21:01)
[2022-10-31 20:10] VITALS: BP 120/64; PULSE 78; RESP 18; TEMP 97.8; O2SAT 98
[2022-10-31] MEDS: TraZODone HCL 150 MG TABLET PO SCH (21:01)
[2022-10-31] MEDS: ZOLPIDEM TARTRATE 10 MG TABLET PO PRN (21:58)
[2022-11-01] MEDS: GABAPENTIN 300 MG CAPSULE PO SCH ×3 (08:06→16:06)
[2022-11-01] MEDS: DULoxetine HCL 20 MG CAPSULE PO SCH (08:07)
[2022-11-01 08:10] LABS: HEMOGLOBIN A1C 5.5 % (3.8-5.6)
[2022-11-01 08:11] VITALS: BP 108/70; PULSE 84; RESP 18; TEMP 97.6; O2SAT 96
[2022-11-01 08:22] LABS: CHOL/HDL RATIO 4.8 (4.2-7.3); THYROID STIMULATING HORMONE 1.5 uIU/mL (0.36-3.74)
[2022-11-01] MEDS: LORazepam 2 MG TABLET PO PRN (12:43)
[2022-11-01] MEDS: TraZODone HCL 150 MG TABLET PO SCH (20:05)
[2022-11-01 20:10] VITALS: BP 106/70; PULSE 89; RESP 18; TEMP 98.4; O2SAT 98
[2022-11-02] MEDS: LORazepam 2 MG TABLET PO PRN (04:34)
[2022-11-02] MEDS: OLANZapine 5 MG TABLET PO PRN (04:34)
[2022-11-02] MEDS: DULoxetine HCL 20 MG CAPSULE PO SCH (08:12)
[2022-11-02] MEDS: GABAPENTIN 300 MG CAPSULE PO SCH ×3 (08:12→16:03)
[2022-11-02 08:56] VITALS: BP 103/72; PULSE 79; RESP 18; TEMP 98.3; O2SAT 95
[2022-11-02] MEDS: TraZODone HCL 150 MG TABLET PO SCH (20:04)
[2022-11-02 20:10] VITALS: BP 120/68; PULSE 72; RESP 18; TEMP 98; O2SAT 98
[2022-11-02] MEDS: ZOLPIDEM TARTRATE 10 MG TABLET PO PRN (22:05)
[2022-11-03] MEDS: DULoxetine HCL 20 MG CAPSULE PO SCH (08:07)
[2022-11-03] MEDS: GABAPENTIN 300 MG CAPSULE PO SCH ×3 (08:37→16:37)
[2022-11-03 09:02] VITALS: BP 115/68; PULSE 100; RESP 18; TEMP 97.6; O2SAT 96
[2022-11-03] MEDS: LORazepam 2 MG TABLET PO PRN (13:37)
[2022-11-03] MEDS: OLANZapine 5 MG TABLET PO PRN (13:38)
[2022-11-03] MEDS: TraZODone HCL 100 MG TABLET PO SCH (20:21)
[2022-11-03 20:22] VITALS: BP 132/86; PULSE 98; RESP 19; TEMP 97.6; O2SAT 97
[2022-11-03] MEDS: ZOLPIDEM TARTRATE 10 MG TABLET PO PRN (21:26)
[2022-11-04] MEDS: DULoxetine HCL 20 MG CAPSULE PO SCH (08:34)
[2022-11-04] MEDS: OLANZapine 5 MG TABLET PO PRN ×2 (08:34→17:20)
[2022-11-04] MEDS: LORazepam 2 MG TABLET PO PRN ×2 (08:34→17:20)
[2022-11-04] MEDS: GABAPENTIN 300 MG CAPSULE PO SCH ×3 (08:34→17:20)
[2022-11-04 08:38] VITALS: BP 122/82; PULSE 100; RESP 18; TEMP 98.1; O2SAT 99
[2022-11-04] MEDS: TraZODone HCL 100 MG TABLET PO SCH (20:19)
[2022-11-04] MEDS: ZOLPIDEM TARTRATE 10 MG TABLET PO PRN (20:19)
[2022-11-04 21:00] VITALS: BP 113/72; PULSE 115; TEMP 98; O2SAT 98
[2022-11-05] MEDS: OLANZapine 5 MG TABLET PO PRN ×2 (08:10→17:17)
[2022-11-05] MEDS: GABAPENTIN 300 MG CAPSULE PO SCH ×3 (08:11→17:17)
[2022-11-05] MEDS: DULoxetine HCL 20 MG CAPSULE PO SCH (08:11)
[2022-11-05] MEDS: LORazepam 2 MG TABLET PO PRN ×3 (08:11→21:19)
[2022-11-05 08:33] VITALS: BP 107/88; PULSE 111; RESP 17; TEMP 98.8; O2SAT 97
[2022-11-05] MEDS ORDERED: TraMADol HCL 50 MG TABLET PO PRN (19:00)
[2022-11-05] MEDS: TraZODone HCL 100 MG TABLET PO SCH (20:17)
[2022-11-05] MEDS: ZOLPIDEM TARTRATE 10 MG TABLET PO PRN (20:17)
[2022-11-05 20:48] VITALS: BP 130/84; PULSE 100; RESP 20; TEMP 98.1; O2SAT 98
[2022-11-06] MEDS: GABAPENTIN 300 MG CAPSULE PO SCH ×3 (08:05→16:34)
[2022-11-06] MEDS: DULoxetine HCL 20 MG CAPSULE PO SCH (08:05)
[2022-11-06 08:40] VITALS: BP 117/64; PULSE 60; RESP 17; TEMP 98.4; O2SAT 98
[2022-11-06] MEDS: LORazepam 2 MG TABLET PO PRN ×2 (14:51→19:15)
[2022-11-06] MEDS: OLANZapine 5 MG TABLET PO PRN (16:34)
[2022-11-06] MEDS: BUPRENORPHINE HCL/NALOXONE HCL 2-0.5 MG SUBLINGUAL TABLET SL SCH (19:14)
[2022-11-06] MEDS: ZOLPIDEM TARTRATE 10 MG TABLET PO PRN (20:23)
[2022-11-06] MEDS: TraZODone HCL 100 MG TABLET PO SCH (20:23)
[2022-11-06 20:47] VITALS: BP 132/80; PULSE 114; RESP 18; TEMP 98.2; O2SAT 99
[2022-11-07 08:05] VITALS: BP 112/78; PULSE 60; RESP 18; TEMP 98.2; O2SAT 97
[2022-11-07] MEDS: DULoxetine HCL 20 MG CAPSULE PO SCH (08:50)
[2022-11-07] MEDS: OMEGA-3/DHA/EPA/FISH OIL 500 MG CAPSULE PO SCH (08:51)
[2022-11-07] MEDS: LORazepam 2 MG TABLET PO PRN (08:51)
[2022-11-07] MEDS: BUPRENORPHINE HCL/NALOXONE HCL 2-0.5 MG SUBLINGUAL TABLET SL SCH ×2 (08:51→16:18)
[2022-11-07] MEDS: GABAPENTIN 300 MG CAPSULE PO SCH ×3 (08:51→16:18)
[2022-11-07] MEDS: OLANZapine 5 MG TABLET PO PRN (08:51)
[2022-11-07] MEDS ORDERED: OMEGA-3/DHA/EPA/FISH OIL 1,000 MG CAPSULE PO SCH ×2 (09:00)
[2022-11-07 10:06] VITALS: BP 112/78; PULSE 100; RESP 18; TEMP 98.2; O2SAT 97
[2022-11-07] MEDS: TraZODone HCL 100 MG TABLET PO SCH (20:21)
[2022-11-07] MEDS: ZOLPIDEM TARTRATE 10 MG TABLET PO PRN (20:24)
[2022-11-07 20:28] VITALS: BP 127/78; PULSE 98; RESP 17; TEMP 97.7; O2SAT 95
[2022-11-08 08:18] VITALS: BP 116/80; PULSE 100; RESP 18; TEMP 98.2; O2SAT 95
[2022-11-08] MEDS: OMEGA-3/DHA/EPA/FISH OIL 500 MG CAPSULE PO SCH (08:23)
[2022-11-08] MEDS: BUPRENORPHINE HCL/NALOXONE HCL 2-0.5 MG SUBLINGUAL TABLET SL SCH ×2 (08:23→16:23)
[2022-11-08] MEDS: GABAPENTIN 300 MG CAPSULE PO SCH ×3 (08:23→16:23)
[2022-11-08] MEDS: DULoxetine HCL 20 MG CAPSULE PO SCH (08:23)
[2022-11-08] MEDS: LORazepam 2 MG TABLET PO PRN ×2 (10:45→22:08)
[2022-11-08] MEDS: TraZODone HCL 100 MG TABLET PO SCH (20:19)
[2022-11-08 21:49] VITALS: BP 122/80; PULSE 99; RESP 18; TEMP 97.9; O2SAT 98
[2022-11-08] MEDS: ZOLPIDEM TARTRATE 10 MG TABLET PO PRN (22:08)
[2022-11-09] MEDS: GABAPENTIN 300 MG CAPSULE PO SCH ×3 (08:07→16:13)
[2022-11-09] MEDS: DULoxetine HCL 20 MG CAPSULE PO SCH (08:08)
[2022-11-09] MEDS: BUPRENORPHINE HCL/NALOXONE HCL 2-0.5 MG SUBLINGUAL TABLET SL SCH ×2 (08:08→17:21)
[2022-11-09] MEDS: OMEGA-3/DHA/EPA/FISH OIL 500 MG CAPSULE PO SCH (08:08)
[2022-11-09 08:22] VITALS: BP 101/74; PULSE 100; RESP 17; TEMP 97.9; O2SAT 96
[2022-11-09 20:13] VITALS: BP 131/82; PULSE 113; RESP 18; TEMP 97.8; O2SAT 96
[2022-11-09] MEDS: TraZODone HCL 100 MG TABLET PO SCH (20:16)
[2022-11-09] MEDS: OLANZapine 5 MG TABLET PO PRN (23:36)
[2022-11-10] MEDS: GABAPENTIN 300 MG CAPSULE PO SCH ×2 (08:04→12:31)
[2022-11-10] MEDS: DULoxetine HCL 20 MG CAPSULE PO SCH (08:04)
[2022-11-10] MEDS: OMEGA-3/DHA/EPA/FISH OIL 500 MG CAPSULE PO SCH (08:05)
[2022-11-10] MEDS: BUPRENORPHINE HCL/NALOXONE HCL 2-0.5 MG SUBLINGUAL TABLET SL SCH (08:05)
[2022-11-10 08:29] VITALS: BP 111/60; PULSE 103; RESP 17; TEMP 97.6; O2SAT 91
[2022-11-10] MEDS: OLANZapine 5 MG TABLET PO PRN (10:14)
[2022-11-10] MEDS ORDERED: TRAZ-186 PO (11:42)
[2022-11-10] MEDS ORDERED: DULO20CA71 PO ×2 (11:42→19:27)
[2022-11-10] MEDS ORDERED: TRAZ-257 PO (19:27)
== END 2022-11-10 14:44 | disposition home or self-care (01) | DRG 753 ==
LOC: EMS 16:39 → B3A 20:39
PROVIDERS: ADMIT Psychiatry & Neurology Child & Adolescent Psychiatry; ATTEND Psychiatry & Neurology Child & Adolescent Psychiatry
DX: F31.4 Bipolar disorder, current episode depressed, severe, without psychotic features (principal); L40.50 Arthropathic psoriasis, unspecified; R45.851 Suicidal ideations; F43.10 Post-traumatic stress disorder, unspecified; G89.29 Other chronic pain; Z20.822 Contact with and (suspected) exposure to COVID-19; G47.00 Insomnia, unspecified; F19.10 Other psychoactive substance abuse, uncomplicated; F11.20 Opioid dependence, uncomplicated; F90.9 Attention-deficit hyperactivity disorder, unspecified type; E78.5 Hyperlipidemia, unspecified; Z79.899 Other long term (current) drug therapy; Z88.8 Allergy status to other drugs, medicaments and biological substances
CPT/HCPCS: 80053; 80061; 80307; 83036; 84443; 85025; 99285; G0480

== ENCOUNTER 2023-05-28 10:21 | Inpatient (IN) | payer MEDICAID ==
[~2023-05-28] VITALS: Ht 172.7 cm; Wt 90.5 kg
[~2023-05-28 10:21] MED LIST changes: -ATOM60CA7 PO; -DICL-208 PO; -DULO-113 PO; +DULO20CA71 PO; +GABA-1181 PO; -GABA-1201 PO; -MELA5TAB40 PO; -MULT-1239 PO; -NALT380S2 IM; -OMEG-135 PO; -QUET200T30 PO; -QUET25TA36 PO; +TRAZ-186 PO; +TRAZ-257 PO
[2023-05-28 17:21] VITALS: BP 106/69; PULSE 65; RESP 19; TEMP 97.5; O2SAT 98
[2023-05-28] MEDS ORDERED: HYDROCORTISONE 1% 30 GM OINTMENT TP PRN (18:30)
[2023-05-28 20:00] VITALS: BP 102/59; PULSE 60; RESP 18; TEMP 97.4; O2SAT 97
[2023-05-28] MEDS: ZOLPIDEM TARTRATE 10 MG TABLET PO PRN (20:43)
[2023-05-29] MEDS ORDERED: CloNIDine HCL 0.1 MG TABLET PO PRN (07:00)
[2023-05-29] MEDS ORDERED: ALBUTEROL SULFATE HFA 90 MCG/PUFF 8 GM INHALER IH PRN (07:00)
[2023-05-29] MEDS ORDERED: LOPERAMIDE HCL 2 MG CAPSULE PO PRN (07:00)
[2023-05-29] MEDS ORDERED: GuaiFENesin/D-METHORPHAN [SUGAR-FREE] 200-20MG/10 ML SYRUP UDCUP PO PRN (07:00)
[2023-05-29] MEDS ORDERED: ACETAMINOPHEN 325 MG TABLET PO PRN (07:00)
[2023-05-29] MEDS ORDERED: NICOTINE 14 MG/24 HOUR PATCH TD PRN (07:00)
[2023-05-29] MEDS ORDERED: PETROLATUM,WHITE 28 GM JELLY TP PRN (07:00)
[2023-05-29] MEDS ORDERED: IBUPROFEN 400 MG TABLET PO PRN (07:00)
[2023-05-29 08:14] VITALS: BP 134/70; PULSE 75; RESP 18; TEMP 97.6; O2SAT 99
[2023-05-29 08:41] LABS: BASOPHILS % (AUTO) 0.7 % (0.0-2.0); EOSINOPHILS % (AUTO) 2.9 % (1.0-6.0); HEMOGLOBIN 13.6 g/dL (13.5-17.5); LYMPHOCYTES % (AUTO) 30.6 % (22.0-44.0); MEAN CORPUSCULAR HEMOGLOBIN 29.1 pg (26.0-34.0); MEAN CORPUSCULAR HGB CONC 33.3 G/dL (31.0-37.0); MEAN CORPUSCULAR VOLUME 88 fL (80-100); MONOCYTES # (AUTO) 0.7 K/uL (0.1-1.0); MONOCYTES % (AUTO) 9.9 % (2.0-9.0); NEUTROPHILS # (AUTO) 3.7 K/uL (1.8-7.7); NEUTROPHILS % (AUTO) 55.9 % (40.0-70.0); PLATELET COUNT (AUTO) 156 K/uL (150-450); RED BLOOD CELL COUNT(AUTO) 4.68 MIL/uL (4.50-5.90); RED CELL DISTRIBUTION WIDTH 15.1 % (11.5-14.5); WHITE BLOOD COUNT (AUTO) 6.6 K/uL (4.5-11.0)
[2023-05-29 09:06] LABS: APPEARANCE,URINE CLEAR (CLEAR); BILIRUBIN,URINE NEGATIVE (NEGATIVE); COLOR,URINE LIGHT YELLOW (YELLOW); GLUCOSE, URINE (UA) NEGATIVE (NEGATIVE); KETONES,URINE NEGATIVE (NEGATIVE); LEUKOCYTE ESTERASE ,URINE NEGATIVE (NEGATIVE); NITRATE,URINE NEGATIVE (NEGATIVE); OCCULT BLOOD,URINE NEGATIVE (NEGATIVE); PROTEIN,URINE NEGATIVE (NEGATIVE); SPECIFIC GRAVITIY, URINE 1.014 (1.003-1.030); UROBILINOGEN,URINE <=1.0 mg/dL (<=1.0)
[2023-05-29 09:07] LABS: ALANINE AMINOTRANSFERASE 29 U/L (12-78); ALBUMIN 3.5 g/dL (3.4-5.0); ALKALINE PHOSPHATASE 85 U/L (46-116); ANION GAP 8 mmol/L (8-16); ASPARTATE AMINOTRANSFERASE 21 U/L (15-37); BILIRUBIN,TOTAL 0.4 mg/dL (0.1-1.0); CALCIUM, TOTAL 9.2 mg/dL (8.8-10.5); CARBON DIOXIDE 29 mmol/L (22-29); CHLORIDE 102 mmol/L (98-107); CHOL/HDL RATIO 5.1 (4.2-7.3); CHOLESTEROL 273 mg/dL (131-200); CREATININE 0.93 mg/dL (0.60-1.30); FREE T4 (FREE THYROXINE) 1.01 ng/dL (0.76-1.46); GLOMERULAR FILTR. RATE CALC > 60 mL/min (>60); GLUCOSE,RANDOM 85 mg/dL (70-110); HDL CHOLESTEROL 54 mg/dL (40-60); LDL CHOL (CALC.) 192 mg/dL (0-130); POTASSIUM 4.2 mmol/L (3.5-5.1); SODIUM SERUM 139 mmol/L (136-145); T4 (THYROXINE) 8.1 mcg/dL (4.7-13.3); THYROID STIMULATING HORMONE 1.75 uIU/mL (0.36-3.74); TOTAL PROTEIN, SERUM 7.2 g/dL (6.4-8.2); TRIGLYCERIDES 133 mg/dL (15-150); UREA NITROGEN, BLOOD 14 mg/dL (7-18)
[2023-05-29] MEDS: GABAPENTIN 300 MG CAPSULE PO SCH (09:07)
[2023-05-29] MEDS: METHADONE HCL 10 MG/5 ML SOLUTION ORAL.SYG PO SCH (09:10)
[2023-05-29 09:14] LABS: ALCOHOL, URINE DRUG SCREEN NEGATIVE (NEGATIVE); AMPHET/METH SCREEN,URINE NEGATIVE (NEGATIVE); BARBITURATE SCREEN, URINE NEGATIVE (NEGATIVE); BENZODIAZEPINES SCREEN,URINE NEGATIVE (NEGATIVE); CANNABINOID SCREEN,URINE POSITIVE (NEGATIVE); COCAINE SCREEN,URINE NEGATIVE (NEGATIVE); METHADONE SCREEN, URINE POSITIVE (NEGATIVE); OPIATE SCREEN,URINE NEGATIVE (NEGATIVE); PHENCYCLIDINE SCREEN,URINE NEGATIVE (NEGATIVE)
[2023-05-29] MEDS: DULoxetine HCL 20 MG CAPSULE PO SCH (12:42)
[2023-05-29] MEDS: LORazepam 2 MG TABLET PO PRN (14:55)
[2023-05-29 20:00] VITALS: BP 114/77; PULSE 86; RESP 18; TEMP 98.4; O2SAT 97
[2023-05-29] MEDS: TraZODone HCL 100 MG TABLET PO SCH (20:25)
[2023-05-30 08:21] VITALS: BP 105/62; PULSE 63; RESP 17; TEMP 97.6; O2SAT 95
[2023-05-30 08:39] LABS: HEMOGLOBIN A1C 5.8 % (3.8-5.6)
[2023-05-30 09:06] LABS: CHOL/HDL RATIO 5.4 (4.2-7.3); THYROID STIMULATING HORMONE 5.15 uIU/mL (0.36-3.74)
[2023-05-31 00:37] VITALS: BP 121/74; PULSE 63; RESP 16; TEMP 97.9; O2SAT 95
[2023-05-31 08:39] VITALS: BP 106/65; PULSE 60; RESP 17; TEMP 98.1; O2SAT 98
[2023-05-31] MEDS: DOCUSATE SODIUM 100 MG CAPSULE PO PRN (20:29)
[2023-05-31 20:35] VITALS: BP 106/71; PULSE 70; RESP 19; TEMP 98.1; O2SAT 97
[2023-06-01 08:52] VITALS: BP 125/88; PULSE 70; RESP 16; TEMP 97.1; O2SAT 98
[2023-06-01 20:30] VITALS: BP 105/58; PULSE 70; RESP 17; TEMP 98; O2SAT 97
[2023-06-01 21:54] VITALS: BP 110/69; PULSE 77; RESP 17; TEMP 98.2
[2023-06-01] MEDS: MAGNESIUM HYDROXIDE SUSPENSION 30 ML UDCUP PO PRN (21:55)
[2023-06-02 08:32] VITALS: BP 103/58; PULSE 61; RESP 17; TEMP 97.8; O2SAT 96
[2023-06-02 23:40] VITALS: RESP 18
[2023-06-03 09:37] VITALS: BP 110/77; PULSE 68; RESP 17; TEMP 98; O2SAT 95
[2023-06-03 20:49] VITALS: BP 118/74; PULSE 84; RESP 17; TEMP 97.8; O2SAT 96
[2023-06-04 08:50] VITALS: BP 108/68; PULSE 66; RESP 17; TEMP 98; O2SAT 97
[2023-06-04 22:58] VITALS: BP 108/72; PULSE 70; RESP 18; TEMP 98.9; O2SAT 96
[2023-06-05 09:32] VITALS: BP 120/61; PULSE 90; RESP 17; TEMP 98.5; O2SAT 100
[2023-06-05 20:52] VITALS: BP 109/61; PULSE 80; RESP 18; TEMP 97.8; O2SAT 99
[2023-06-06 08:21] VITALS: BP 131/80; PULSE 75; RESP 17; TEMP 97.6; O2SAT 97
[2023-06-06 20:21] VITALS: BP 100/72; PULSE 74; RESP 17; TEMP 97.3; O2SAT 97
[2023-06-07 08:39] VITALS: BP 119/74; PULSE 68; RESP 17; TEMP 97.6; O2SAT 97
[2023-06-07] MEDS: MAG HYDROX/ALUMINUM HYD/SIMETH ES 30 ML SUSPENSION UDCUP PO PRN (18:46)
[2023-06-07 20:44] VITALS: BP 103/55; PULSE 72; RESP 16; TEMP 97
[2023-06-08 08:44] VITALS: BP 117/76; PULSE 71; RESP 17; TEMP 97.8; O2SAT 98
[2023-06-08] MEDS: METHADONE HCL 10 MG/5 ML SOLUTION ORAL.SYG PO SCH (09:17)
[2023-06-08 21:45] VITALS: BP 94/57; PULSE 70; RESP 18; TEMP 97.7; O2SAT 98
[2023-06-09] MEDS: BISACODYL 5 MG EC TABLET PO SCH (08:49)
[2023-06-09 11:27] VITALS: BP 124/73; PULSE 69; RESP 18; TEMP 97.9; O2SAT 100
[2023-06-09] MEDS: METHADONE HCL 10 MG/5 ML SOLUTION ORAL.SYG PO ONE (16:34)
[2023-06-09] MEDS: HALOPERIDOL 5 MG TABLET PO PRN (22:24)
[2023-06-09 22:41] VITALS: BP 102/69; PULSE 66; TEMP 98.1; O2SAT 98
[2023-06-10] MEDS ORDERED: METHADONE HCL 10 MG/5 ML SOLUTION ORAL.SYG PO SCH (09:00)
[2023-06-10 09:29] VITALS: BP 133/92; PULSE 65; RESP 17; TEMP 98; O2SAT 97
[2023-06-10] MEDS: METHADONE HCL 10 MG/5 ML SOLUTION ORAL.SYG PO SCH (09:33)
[2023-06-10 21:08] VITALS: BP 100/67; PULSE 71; RESP 16; TEMP 97.6; O2SAT 98
[2023-06-11 09:22] VITALS: BP 110/78; PULSE 75; RESP 17; TEMP 98; O2SAT 99
[2023-06-11 20:33] VITALS: BP 95/58; PULSE 87; RESP 18; TEMP 97.6; O2SAT 94
[2023-06-12 10:28] VITALS: BP 100/69; PULSE 63; RESP 17; TEMP 97.9; O2SAT 98
[2023-06-12 16:35] VITALS: BP 106/70; PULSE 70; RESP 16; O2SAT 98
[2023-06-12 20:08] VITALS: BP 107/71; PULSE 72; RESP 16; TEMP 98
[2023-06-12] MEDS: QUEtiapine FUMARATE 100 MG TABLET PO SCH (20:18)
[2023-06-13 08:20] VITALS: BP 100/66; PULSE 60; RESP 17; TEMP 97.9; O2SAT 95
[2023-06-13 21:23] VITALS: BP 90/59; PULSE 76; RESP 16; TEMP 97.8; O2SAT 98
[2023-06-14 08:00] VITALS: BP_SYST 106; BP_SYST 124; BP_DIAS 70; BP_DIAS 71; PULSE 66; PULSE 70; RESP 17; TEMP 97.8; TEMP 98.1; O2SAT 96
[2023-06-14] MEDS: ONDANSETRON HCL 4 MG TABLET PO PRN (17:52)
[2023-06-14 20:02] VITALS: BP 103/68; PULSE 89; RESP 21; TEMP 98.8; O2SAT 98
[2023-06-14] MEDS: CIPROFLOXACIN HCL 0.2%/HYDROCORT 1% 10 ML OTIC SUSPENSION AU SCH (21:49)
[2023-06-15 08:55] VITALS: BP 107/67; PULSE 70; RESP 18; TEMP 98.5; O2SAT 97
[2023-06-15 22:44] VITALS: BP 102/68; PULSE 67; RESP 18; TEMP 97.2; O2SAT 95
[2023-06-16 08:04] VITALS: BP 107/61; PULSE 64; RESP 19; TEMP 98; O2SAT 97
[2023-06-16] MEDS ORDERED: GABA-1181 PO (12:13)
[2023-06-16] MEDS ORDERED: TRAZ-257 PO (12:13)
[2023-06-16] MEDS ORDERED: DULO20CA71 PO (12:13)
[2023-06-16] MEDS ORDERED: CIPOTIC AU (13:12)
== END 2023-06-16 14:00 | disposition home or self-care (01) | DRG 753 ==
LOC: B2S 11:00
PROVIDERS: ADMIT Psychiatry & Neurology Psychiatry; ATTEND Psychiatry & Neurology Psychiatry
PROC: GZHZZZZ Group Psychotherapy (ICD-10-PCS; principal; 2023-05-29)
DX: F31.4 Bipolar disorder, current episode depressed, severe, without psychotic features (principal); R45.851 Suicidal ideations; L40.59 Other psoriatic arthropathy; E66.3 Overweight; E78.5 Hyperlipidemia, unspecified; F10.10 Alcohol abuse, uncomplicated; F41.9 Anxiety disorder, unspecified; G47.00 Insomnia, unspecified; F19.90 Other psychoactive substance use, unspecified, uncomplicated; F17.200 Nicotine dependence, unspecified, uncomplicated; M10.9 Gout, unspecified; R73.03 Prediabetes; Z79.899 Other long term (current) drug therapy; Z68.30 Body mass index [BMI] 30.0-30.9, adult
CPT/HCPCS: 80053; 80061; 80307; 81003; 83036; 84436; 84439; 84443; 85025; Q0162

== ENCOUNTER 2024-04-19 21:07 | Inpatient (IN) | payer MEDICAID ==
[~2024-04-19] VITALS: Ht 172.7 cm; Wt 95.3 kg
[~2024-04-19 21:07] MED LIST changes: +CIPOTIC AU; -TRAZ-186 PO
[2024-04-19] MEDS ORDERED: HALOPERIDOL 5 MG TABLET PO PRN (22:15)
[2024-04-19] MEDS: ZOLPIDEM TARTRATE 10 MG TABLET PO PRN (23:35)
[2024-04-20 00:41] VITALS: BP 126/84; PULSE 90; RESP 18; TEMP 97.8; O2SAT 98
[2024-04-20] MEDS ORDERED: INFLUENZA VIRUS VACCINE TVS (6MO+) 2024-25/PF 45 MCG/0.5 ML SYRINGE IM. ONE (01:30)
[2024-04-20] MEDS ORDERED: HYDROCORTISONE 1% 120 ML LOTION TP PRN (07:30)
[2024-04-20 08:57] LABS: BASOPHILS % (AUTO) 0.5 % (0.0-2.0); EOSINOPHILS % (AUTO) 1.5 % (1.0-6.0); HEMATOCRIT 41.5 % (41-53); HEMOGLOBIN 13.8 g/dL (13.5-17.5); LYMPHOCYTES # (AUTO) 1.6 K/uL (1.0-4.8); LYMPHOCYTES % (AUTO) 27.7 % (22.0-44.0); MEAN CORPUSCULAR HEMOGLOBIN 28.8 pg (26.0-34.0); MEAN CORPUSCULAR HGB CONC 33.3 G/dL (31.0-37.0); MEAN CORPUSCULAR VOLUME 86 fL (80-100); MONOCYTES # (AUTO) 0.3 K/uL (0.1-1.0); MONOCYTES % (AUTO) 5.3 % (2.0-9.0); NEUTROPHILS # (AUTO) 3.8 K/uL (1.8-7.7); PLATELET COUNT (AUTO) 177 K/uL (150-450); WHITE BLOOD COUNT (AUTO) 5.9 K/uL (4.5-11.0)
[2024-04-20 09:08] LABS: HEMOGLOBIN A1C 5.8 % (3.8-5.6)
[2024-04-20 09:13] VITALS: BP 105/65; PULSE 91; RESP 17; TEMP 98.1; O2SAT 99
[2024-04-20 09:22] LABS: CHOL/HDL RATIO 3.7 (4.2-7.3); FREE T4 (FREE THYROXINE) 0.93 ng/dL (0.76-1.46); THYROID STIMULATING HORMONE 1.15 uIU/mL (0.36-3.74)
[2024-04-20] MEDS ORDERED: VENL-67 PO (11:59)
[2024-04-20] MEDS ORDERED: QUET400T13 PO (11:59)
[2024-04-20] MEDS: VENLAFAXINE HCL 75 MG ER CAPSULE PO SCH (12:15)
[2024-04-20] MEDS ORDERED: ACETAMINOPHEN 650 MG/20.3 ML SOLUTION UDCUP PO PRN (16:45)
[2024-04-20] MEDS: IBUPROFEN 400 MG TABLET PO PRN (17:13)
[2024-04-20 17:17] VITALS: BP 118/76; PULSE 93; RESP 18; TEMP 97.2; O2SAT 98
[2024-04-20] MEDS: LORazepam 2 MG TABLET PO PRN (17:17)
[2024-04-20 18:18] VITALS: RESP 18
[2024-04-20 20:36] VITALS: BP 122/79; PULSE 77; RESP 19; TEMP 98.3; O2SAT 96
[2024-04-20] MEDS: QUEtiapine FUMARATE 200 MG TABLET PO SCH (21:11)
[2024-04-21 05:07] LABS: HEPATITIS C AB (EIA) Non Reactive (Non Reactive)
[2024-04-21 08:45] VITALS: BP 100/60; PULSE 85; RESP 18; TEMP 97.7; O2SAT 97
[2024-04-21 11:34] LABS: APPEARANCE,URINE TURBID (CLEAR); BILIRUBIN,URINE NEGATIVE (NEGATIVE); COLOR,URINE LIGHT ORANGE (YELLOW); GLUCOSE, URINE (UA) NEGATIVE (NEGATIVE); KETONES,URINE NEGATIVE (NEGATIVE); LEUKOCYTE ESTERASE ,URINE NEGATIVE (NEGATIVE); NITRATE,URINE NEGATIVE (NEGATIVE); OCCULT BLOOD,URINE NEGATIVE (NEGATIVE); PH,URINE 5.5 (5.0-8.0); PH,URINE DRUG SCREEN 5.5 (5.0-8.0); PROTEIN,URINE NEGATIVE (NEGATIVE); SPECIFIC GRAVITIY, URINE 1.019 (1.003-1.030); UROBILINOGEN,URINE <=1.0 mg/dL (<=1.0)
[2024-04-21 12:04] LABS: ALCOHOL, URINE DRUG SCREEN NEGATIVE (NEGATIVE); AMPHET/METH SCREEN,URINE NEGATIVE (NEGATIVE); BARBITURATE SCREEN, URINE NEGATIVE (NEGATIVE); BENZODIAZEPINES SCREEN,URINE NEGATIVE (NEGATIVE); CANNABINOID SCREEN,URINE POSITIVE (NEGATIVE); COCAINE SCREEN,URINE NEGATIVE (NEGATIVE); METHADONE SCREEN, URINE NEGATIVE (NEGATIVE); OPIATE SCREEN,URINE NEGATIVE (NEGATIVE); PHENCYCLIDINE SCREEN,URINE NEGATIVE (NEGATIVE)
[2024-04-21 20:36] VITALS: BP 109/67; PULSE 77; RESP 16; TEMP 97.1; O2SAT 98
[2024-04-22 08:37] VITALS: BP 107/64; PULSE 90; RESP 18; TEMP 96.6; O2SAT 95
[2024-04-22 21:23] VITALS: BP 112/65; PULSE 92; RESP 17; TEMP 97.2; O2SAT 95
[2024-04-23 08:40] VITALS: BP 127/82; PULSE 82; RESP 16; TEMP 96.7; O2SAT 95
[2024-04-23 20:55] VITALS: BP 110/79; PULSE 81; RESP 17; TEMP 97.4; O2SAT 98
[2024-04-23 22:30] VITALS: BP 128/89; PULSE 133; RESP 17; TEMP 96.5; O2SAT 96; O2SAT 97
[2024-04-23 22:45] VITALS: BP 120/98; PULSE 123; RESP 17; TEMP 96.7; O2SAT 96
[2024-04-23 23:20] VITALS: BP 101/74; PULSE 117; RESP 17; TEMP 96.5; O2SAT 97
[2024-04-24 04:21] LABS: GLUCOMETER DEV NAME(LOC) BV2S.; GLUCOSE,POINT OF CARE 116 MG/DL (70-110)
[2024-04-24] MEDS ORDERED: ATOR40TA71 PO (11:27)
[2024-04-24] MEDS ORDERED: MELO-106 PO (11:34)
[2024-04-24] MEDS ORDERED: NALO4SPR NASAL (11:34)
== END 2024-04-24 16:28 | disposition short-term general hospital (02) | DRG 753 ==
LOC: B2S 22:56
PROVIDERS: ADMIT Psychiatry & Neurology Psychiatry; ATTEND Psychiatry & Neurology Psychiatry
PROC: GZHZZZZ Group Psychotherapy (ICD-10-PCS; principal; 2024-04-20)
PROC: GZ52ZZZ Individual Psychotherapy, Cognitive (ICD-10-PCS; 2024-04-20)
DX: F31.5 Bipolar disorder, current episode depressed, severe, with psychotic features (principal); R45.851 Suicidal ideations; F11.20 Opioid dependence, uncomplicated; F15.10 Other stimulant abuse, uncomplicated; L40.9 Psoriasis, unspecified; M10.9 Gout, unspecified; F41.9 Anxiety disorder, unspecified; G47.00 Insomnia, unspecified; Z59.00 Homelessness unspecified; Z91.51 Personal history of suicidal behavior; Z79.899 Other long term (current) drug therapy; Z88.8 Allergy status to other drugs, medicaments and biological substances
CPT/HCPCS: 80061; 80307; 81003; 82962; 83036; 84439; 84443; 85025; 86803; 87340

== ENCOUNTER 2024-10-01 15:05 | Emergency (ER) | payer MEDICAID, OTHER ==
[~2024-10-01] VITALS: Ht 172.7 cm; Wt 86.6 kg
[~2024-10-01 15:05] MED LIST changes: -CIPOTIC AU; -DULO20CA71 PO; -GABA-1181 PO; +QUET400T13 PO; -TRAZ-257 PO; +VENL-67 PO
[2024-10-01 16:52] VITALS: BP 113/88; PULSE 99; RESP 18; TEMP 97.9; O2SAT 99
== END 2024-10-01 19:23 ==
LOC: EMS 15:05
DX: S09.90XA Unspecified injury of head, initial encounter (principal); F31.9 Bipolar disorder, unspecified; F12.90 Cannabis use, unspecified, uncomplicated; F43.10 Post-traumatic stress disorder, unspecified; F17.200 Nicotine dependence, unspecified, uncomplicated; Z79.899 Other long term (current) drug therapy; W18.39XA Other fall on same level, initial encounter; Y93.89 Activity, other specified; Y92.89 Other specified places as the place of occurrence of the external cause; Y99.8 Other external cause status
CPT/HCPCS: 70450; 72125; 99284